=== PATIENT | male | born 1960 | race African-American/Black ===

== ENCOUNTER 2016-10-08 23:31 | Inpatient (IN) | payer OTHER ==
[~2016-10-08] VITALS: Ht 182.9 cm; Wt 77.1 kg
[~2016-10-08 23:31] MED LIST: Furosemide PO; Spironolactone PO
[2016-10-09] MEDS ORDERED: ONDANSETRON HCL 4MG/2ML VIAL IV STA (03:21)
[2016-10-09] MEDS ORDERED: MORPHINE SULFATE 4 MG/ML CPJ (NOT FOR IM USE) IV STA (03:21)
[2016-10-09] MEDS ORDERED: SODIUM CHLORIDE 0.9% 1,000 ML IV ONE (03:21)
[2016-10-09 03:49] LABS: BASOPHILS % 0.3 % (0.0-2.0); EOSINOPHILS % 0.9 % (0.0-5.0); HEMATOCRIT. 33.6 % (42.0-52.0); HEMOGLOBIN. 11.5 g/dL (14.0-18.0); LYMPHOCYTES % 17.1 % (20.0-50.0); MEAN CORPUSCULAR HEMOGLOBIN 34.4 pg (28.0-32.0); MEAN CORPUSCULAR VOLUME 100.9 fL (80.0-94.0); MEAN PLATELET VOLUME 8.4 fl (7.4-10.4); MONOCYTES % 9.4 % (2.0-8.0); NEUTROPHILS % 72.3 % (40.0-76.0); PLATELET 127 x1000/uL (130-400); RED BLOOD CELL COUNT 3.33 mill/uL (4.7-6.1); RED CELL DISTRIBUTION WIDTH 16.4 % (11.6-14.6)
[2016-10-09 03:53] LABS: INR 1.2; PROTHROMBIN TIME 12.1 sec
[2016-10-09 03:59] LABS: CARBON DIOXIDE 25 mEq/L (21-32); CHLORIDE 96 mEq/L (98-107)
[2016-10-09] MEDS ORDERED: CLONIDINE 0.1MG TABLET PO NR (07:30)
[2016-10-09] MEDS ORDERED: MORPHINE SULFATE 4 MG/ML CPJ (NOT FOR IM USE) IV NR (07:30)
[2016-10-09 08:00] VITALS: BP 149/104
[2016-10-09] MEDS ORDERED: BENA40TA3 PO (08:34)
[2016-10-09] MEDS ORDERED: PANT40TA4 PO (08:34)
[2016-10-09] MEDS ORDERED: ONDANSETRON HCL 4MG/2ML VIAL IV PRN (08:45)
[2016-10-09] MEDS: DEXT 5%/0.45% NACL KCL 20MEQ/L 1,000 ML IV SCH ×2 (10:19→18:01)
[2016-10-09] MEDS: PANTOPRAZOLE SODIUM 40 MG/VIAL IV SCH (10:19)
[2016-10-09] MEDS: MORPHINE SULFATE 2 MG/ML CPJ (NOT FOR IM USE) IV PRN ×3 (10:20→22:03)
[2016-10-09 12:00] VITALS: BP 153/90
[2016-10-09 16:00] VITALS: BP 129/89
[2016-10-09 20:00] VITALS: BP 158/94
[2016-10-10] VITALS: BP 146/101
[2016-10-10] MEDS: DEXT 5%/0.45% NACL KCL 20MEQ/L 1,000 ML IV SCH ×3 (02:26→18:16)
[2016-10-10 04:00] VITALS: BP 157/88
[2016-10-10 05:25] LABS: BASOPHILS % 0.4 % (0.0-2.0); EOSINOPHILS % 1.3 % (0.0-5.0); HEMATOCRIT. 32.5 % (42.0-52.0); LYMPHOCYTES % 16.9 % (20.0-50.0); MEAN CORPUSCULAR HEMOGLOBIN 34.3 pg (28.0-32.0); MEAN CORPUSCULAR VOLUME 101.8 fL (80.0-94.0); MEAN PLATELET VOLUME 8.7 fl (7.4-10.4); MONOCYTES % 10.9 % (2.0-8.0); NEUTROPHILS % 70.5 % (40.0-76.0); PLATELET 113 x1000/uL (130-400); RED CELL DISTRIBUTION WIDTH 16.3 % (11.6-14.6)
[2016-10-10 06:27] LABS: CARBON DIOXIDE 31 mEq/L (21-32); CHLORIDE 98 mEq/L (98-107)
[2016-10-10] MEDS: MORPHINE SULFATE 2 MG/ML CPJ (NOT FOR IM USE) IV PRN ×2 (06:52→20:10)
[2016-10-10 08:00] VITALS: BP 131/89
[2016-10-10] MEDS: PANTOPRAZOLE SODIUM 40 MG/VIAL IV SCH (08:02)
[2016-10-10 12:00] VITALS: BP 146/95
[2016-10-10 16:00] VITALS: BP 126/87
[2016-10-10 20:00] VITALS: BP 132/87
[2016-10-11] VITALS (7 sets, daily range): BP systolic 102–144; BP diastolic 69–97
[2016-10-11] MEDS: DEXT 5%/0.45% NACL KCL 20MEQ/L 1,000 ML IV SCH ×3 (03:02→21:03)
[2016-10-11 06:23] LABS: BASOPHILS % 0.2 % (0.0-2.0); EOSINOPHILS % 1.8 % (0.0-5.0); HEMATOCRIT. 30.7 % (42.0-52.0); HEMOGLOBIN. 10.3 g/dL (14.0-18.0); LYMPHOCYTES % 25.1 % (20.0-50.0); MEAN CORPUSCULAR HEMOGLOBIN 34.6 pg (28.0-32.0); MEAN CORPUSCULAR VOLUME 102.8 fL (80.0-94.0); MEAN PLATELET VOLUME 8.9 fl (7.4-10.4); MONOCYTES % 14.3 % (2.0-8.0); NEUTROPHILS % 58.6 % (40.0-76.0); PLATELET 115 x1000/uL (130-400); RED BLOOD CELL COUNT 2.98 mill/uL (4.7-6.1); RED CELL DISTRIBUTION WIDTH 16.4 % (11.6-14.6)
[2016-10-11 06:48] LABS: CARBON DIOXIDE 30 mEq/L (21-32); CHLORIDE 99 mEq/L (98-107)
[2016-10-11] MEDS: PANTOPRAZOLE SODIUM 40 MG/VIAL IV SCH (08:25)
[2016-10-11] MEDS ORDERED: LIDOCAINE HCL 1% 20ML VIAL (Pyxis) INJ ONE (13:57)
[2016-10-11] MEDS ORDERED: SODIUM BICARBONATE 4% (2.4MEQ) 5ML VIAL IV ONE (13:57)
[2016-10-11] MEDS: MORPHINE SULFATE 2 MG/ML CPJ (NOT FOR IM USE) IV PRN (23:08)
[2016-10-12] VITALS: BP_SYST 132
[2016-10-12 04:00] VITALS: BP 120/69
[2016-10-12] MEDS: DEXT 5%/0.45% NACL KCL 20MEQ/L 1,000 ML IV SCH (06:11)
[2016-10-12 07:45] VITALS: BP 138/91
[2016-10-12] MEDS: PANTOPRAZOLE SODIUM 40 MG/VIAL IV SCH (08:13)
[2016-10-12 11:19] VITALS: BP 138/91
== END 2016-10-12 11:30 | disposition home or self-care (01) ==
LOC: EDBEDREQ 10-09 05:02 → ER 10-09 06:04 → 6WST 10-09 06:05 → EDBEDREQ 10-09 06:07 → EDBEDREQTM 10-09 06:07 → ENRESERV 10-09 07:01
PROVIDERS: ADMIT Internal Medicine; ATTEND Internal Medicine
PROC: 0W9G3ZZ Drainage of Peritoneal Cavity, Percutaneous Approach (ICD-10-PCS; principal; 2016-10-11)
DX: K74.60 Unspecified cirrhosis of liver (principal); K85.10 Biliary acute pancreatitis without necrosis or infection; R18.8 Other ascites; E88.09 Other disorders of plasma-protein metabolism, not elsewhere classified; K85.20 Alcohol induced acute pancreatitis without necrosis or infection; I10 Essential (primary) hypertension; B18.2 Chronic viral hepatitis C; K80.20 Calculus of gallbladder without cholecystitis without obstruction; F17.210 Nicotine dependence, cigarettes, uncomplicated; D53.9 Nutritional anemia, unspecified; F10.10 Alcohol abuse, uncomplicated; Z88.0 Allergy status to penicillin
CPT/HCPCS: 36415; 49083; 71010; 76705; 80048; 80053; 80076; 82040; 83690; 85025; 85610; 87070; 87205; 87536; 88108; 88312; 89050; 93005; 96361; 96374; 96375; 96376; 99285; C9113; J2270; J2405; J3490; J7030

== ENCOUNTER 2018-08-08 20:41 | Emergency (ER) | payer OTHER ==
[~2018-08-08] VITALS: Ht 182.9 cm; Wt 110.0 kg
[~2018-08-08 20:41] MED LIST changes: +BENA40TA9 PO; +PANT40TA4 PO
[2018-08-09] MEDS ORDERED: KETOROLAC 30MG/ML VIAL IV STA (00:36)
[2018-08-09] MEDS ORDERED: SODIUM CHLORIDE 0.9% 1,000 ML IV ONE (00:36)
[2018-08-09 01:19] LABS: BASOPHILS % 0.5 % (0.0-2.0); EOSINOPHILS % 1.1 % (0.0-5.0); HEMATOCRIT. 39.3 % (42.0-52.0); HEMOGLOBIN. 13.4 g/dL (14.0-18.0); LYMPHOCYTES % 20.3 % (20.0-50.0); MEAN CORPUSCULAR HEMOGLOBIN 32.1 pg (28.0-32.0); MEAN CORPUSCULAR VOLUME 94.2 fL (80.0-94.0); MEAN PLATELET VOLUME 8.6 fl (7.4-10.4); MONOCYTES % 11.4 % (2.0-8.0); NEUTROPHILS % 66.7 % (40.0-76.0); PLATELET 158 x1000/uL (130-400); RED BLOOD CELL COUNT 4.18 mill/uL (4.7-6.1); RED CELL DISTRIBUTION WIDTH 16.9 % (11.6-14.6)
[2018-08-09 01:24] LABS: CHLORIDE 100 mEq/L (98-107)
[2018-08-09 01:31] LABS: ETHANOL BLOOD < 10 mg/dL
[2018-08-09 01:46] LABS: INR 1.2
[2018-08-09 02:48] VITALS: BP 155/115
== END 2018-08-09 02:50 | disposition home or self-care (01) ==
LOC: ER 20:41
DX: K40.90 Unilateral inguinal hernia, without obstruction or gangrene, not specified as recurrent (principal); R74.0 Nonspecific elevation of levels of transaminase and lactic acid dehydrogenase [LDH]; I12.9 Hypertensive chronic kidney disease with stage 1 through stage 4 chronic kidney disease, or unspecified chronic kidney disease; N18.9 Chronic kidney disease, unspecified; F17.200 Nicotine dependence, unspecified, uncomplicated; Z88.0 Allergy status to penicillin
CPT/HCPCS: 36415; 71045; 80053; 80320; 83690; 83880; 84484; 85025; 85610; 93005; 96361; 96374; 99284; J1885; J7030; Z7610; G0480

== ENCOUNTER 2018-09-27 10:17 | Emergency (ER) | payer OTHER ==
[~2018-09-27] VITALS: Ht 182.9 cm; Wt 95.0 kg
[2018-09-27] MEDS ORDERED: IBUPROFEN 600MG TABLET PO ONE (11:00)
[2018-09-27 11:03] VITALS: BP 141/90
== END 2018-09-27 12:42 | disposition home or self-care (01) ==
LOC: ER 10:38
DX: S92.332A Displaced fracture of third metatarsal bone, left foot, initial encounter for closed fracture (principal); S92.342A Displaced fracture of fourth metatarsal bone, left foot, initial encounter for closed fracture; S92.352A Displaced fracture of fifth metatarsal bone, left foot, initial encounter for closed fracture; I10 Essential (primary) hypertension; K76.9 Liver disease, unspecified; F17.200 Nicotine dependence, unspecified, uncomplicated; Z87.19 Personal history of other diseases of the digestive system; Z88.0 Allergy status to penicillin; Z79.899 Other long term (current) drug therapy; X58.XXXA Exposure to other specified factors, initial encounter; Y93.89 Activity, other specified; Y92.89 Other specified places as the place of occurrence of the external cause; Y99.8 Other external cause status
CPT/HCPCS: 73630; 99283; Z7610

== ENCOUNTER 2019-10-16 08:36 | Emergency (ER) | payer OTHER ==
[~2019-10-16] VITALS: Ht 190.5 cm; Wt 113.0 kg
[2019-10-16 08:38] VITALS: BP 146/90
[2019-10-16] MEDS ORDERED: ACETAMINOPHEN 325MG TABLET PO ONE (09:15)
== END 2019-10-16 10:15 | disposition home or self-care (01) ==
LOC: ER 08:54
DX: M25.512 Pain in left shoulder (principal); I10 Essential (primary) hypertension; Z88.0 Allergy status to penicillin; Z79.899 Other long term (current) drug therapy
CPT/HCPCS: 99283

== ENCOUNTER 2020-07-23 12:09 | Emergency (ER) | payer OTHER ==
[~2020-07-23] VITALS: Ht 182.9 cm; Wt 113.0 kg
[~2020-07-23 12:09] MED LIST changes: -PANT40TA4 PO; +PANT40TA51 PO
[2020-07-23] MEDS ORDERED: HALOPERIDOL 5MG TABLET PO ONE (13:00)
[2020-07-23 15:02] VITALS: BP 138/105
== END 2020-07-23 15:46 | disposition home or self-care (01) ==
LOC: ER 12:16
DX: F10.129 Alcohol abuse with intoxication, unspecified (principal); I10 Essential (primary) hypertension; K76.9 Liver disease, unspecified; Y90.9 Presence of alcohol in blood, level not specified; Z87.19 Personal history of other diseases of the digestive system
CPT/HCPCS: 99283; J1630